=== PATIENT | male | born 1980 | race Caucasian/White ===

== ENCOUNTER 2017-05-08 12:47 | Emergency (ER) | payer MEDICAID ==
[~2017-05-08] VITALS: Ht 185.4 cm; Wt 122.0 kg
[~2017-05-08 12:47] MED LIST: CARI350T PO; CIP250T PO; HYDR1TAB PO; NO HOME MEDS
[2017-05-08] MEDS ORDERED: dexamethasone sod phosphate 10mg/ml inj IM STA (14:33)
[2017-05-08] MEDS ORDERED: ketorolac trometh inj. 60 MG/2 ML VIAL IM ONE (14:35)
[2017-05-08] MEDS ORDERED: cyclobenzaprine 10mg tablet PO ONE (14:35)
[2017-05-08] MEDS ORDERED: IBUP-1986 PO (14:36)
[2017-05-08] MEDS ORDERED: CYCL-1 PO (14:36)
[2017-05-08 14:57] VITALS: BP 136/78
== END 2017-05-08 15:00 | disposition home or self-care (01) ==
LOC: ER 12:47
DX: G89.29 Other chronic pain (principal); M54.5 Low back pain; R20.2 Paresthesia of skin; M19.90 Unspecified osteoarthritis, unspecified site
CPT/HCPCS: 96372; 99284; J1100; J1885